=== PATIENT | male | born 1970 | race American Indian/Alaskan Native ===

== ENCOUNTER 2019-08-14 13:05 | Inpatient (IN) | payer MEDICARE ==
--- NOTE | 2019-08-14 13:19 | Event Note ---
ED Screening Note Date of service: 08/14/19 Time: 13:15 ED Screening Note: This is a 49 y.o. M. that presents to the ER with SI thoughts. Patient states he took clonazepam 1 mg x 17 45 minutes [employer]. This initial assessment/diagnostic orders/clinical plan/treatment(s) is/are subject to change based on patients health status, clinical progression and re- assessment by fellow clinical providers in the ED. Further treatment and workup at subsequent clinical providers discretion. Patient/guardian urged not to elope from the ED as their condition may be serious if not clinically assessed and managed. Initial orders include: Labs
[2019-08-14 13:47] LABS: Basophils # (Auto) 0.1 K/mm3 (0.0-0.1); Basophils % (Auto) 1.2 % (0.0-1.8); Eosinophils # (Auto) 0.1 K/mm3 (0.0-0.4); Eosinophils % (Auto) 1.2 % (0.0-4.3); Hematocrit 40.6 % (35.5-45.6); Hemoglobin 13.5 gm/dl (11.8-15.2); Lymphocytes # (Auto) 2.6 K/mm3 (1.2-5.4); Lymphocytes % (Auto) 36.3 % (13.4-35.0); Mean Corpuscular HGB Conc 33 % (32-34); Mean Corpuscular Volume 83 fl (84-94); Monocytes # (Auto) 0.5 K/mm3 (0.0-0.8); Monocytes % (Auto) 7.4 % (0.0-7.3); Platelet Count 326 K/mm3 (140-440); Red Cell Distribution Width 14.2 % (13.2-15.2)
[2019-08-14 14:09] LABS: BUN/Creatinine Ratio 13; Blood Urea Nitrogen 14 mg/dL (9-20); Calcium 9.6 mg/dL (8.4-10.2); Hemolysis Index 8
[2019-08-14] MEDS ORDERED: ATIVAN IM PRN (14:24)
[2019-08-14] MEDS ORDERED: HALDOL IM PRN (14:24)
--- NOTE | 2019-08-14 14:38 | Emergency Department Report ---
ED General Adult HPI - General Chief complaint: Psych Stated complaint: SI Time Seen by Provider: 08/14/19 13:15 Source: patient, RN notes reviewed Mode of arrival: Ambulatory Limitations: No Limitations - History of Present Illness Initial comments: This is a 49-year-old gentleman. This patient is not known to this provider previously. The patient recently moved here from [facility]. he presents to the ER more than one hour after deliberate klonipin ingestion he is depressed about his father being on hospice and took the tabs so " i can meet him [ in [place]]) he denies other co ingestions he denies hallucinations he endorses chronic arthritic pain he denies new or different pain he is asking to speak to a rn social work -: This afternoon - Related Data Home Medications Medication Instructions Recorded Confirmed Last Taken Fluticasone [Flonase] 1 spray NS QDAY 08/14/19 08/14/19 07/15/19 Gabapentin [Neurontin] 800 mg PO QHS 08/14/19 08/14/19 07/15/19 Ipratropium/Albuter (Nf) 2 puff IH QID 08/14/19 08/14/19 07/15/19 [Combivent (Nf)] Naproxen 500 mg PO BID 08/14/19 08/14/19 07/15/19 Quetiapine Fumarate [SEROquel] 400 mg PO QHS 08/14/19 08/14/19 07/15/19 cloNIDine [Catapres] 0.1 mg PO BID 08/14/19 08/14/19 07/15/19 clonazePAM [ Klonopin] 0.5 mg PO BID PRN 08/14/19 08/14/19 07/15/19 Allergies Allergy/AdvReac Type Severity Reaction Status Date / Time chlorpromazine Allergy Rash Verified 08/14/19 13:06 [From Thorazine] pollen extracts Allergy Itching Verified 08/14/19 13:06 ragweed pollen Allergy Itching Verified 08/14/19 13:06 pet dander Allergy Itching Uncoded 08/14/19 13:06 ED Review of Systems ROS: Stated complaint: SI Other details as noted in HPI Constitutional: denies: fever Eyes: denies: eye discharge ENT: denies: hearing loss, congestion Respiratory: denies: wheezing Cardiovascular: denies: syncope Gastrointestinal: denies: abdominal pain Genitourinary: denies: dysuria Musculoskeletal: arthralgia, myalgia Skin: denies: lesions Neurological: denies: weakness Psychiatric: depression, suicidal thoughts ED Past Medical Hx - Past Medical History Hx Hypertension: Yes Hx Psychiatric Treatment: Yes (SCHIZO) Hx COPD: Yes Additional medical history: Hypoglycemia. ADHD PTSD - Social History Smoking Status: Current Every Day Smoker Substance Use Type: Alcohol - Medications Home Medications: Home Medications Medication Instructions Recorded Confirmed Last Taken Type Fluticasone [Flonase] 1 spray NS QDAY 08/14/19 08/14/19 07/15/19 History Gabapentin [Neurontin] 800 mg PO QHS 08/14/19 08/14/19 07/15/19 History Ipratropium/Albuter (Nf) 2 puff IH QID 08/14/19 08/14/19 07/15/19 History [Combivent (Nf)] Naproxen 500 mg PO BID 08/14/19 08/14/19 07/15/19 History Quetiapine Fumarate [SEROquel] 400 mg PO QHS 08/14/19 08/14/19 07/15/19 History cloNIDine [Catapres] 0.1 mg PO BID 08/14/19 08/14/19 07/15/19 History clonazePAM [ Klonopin] 0.5 mg PO BID PRN 08/14/19 08/14/19 07/15/19 History ED Physical Exam - General Limitations: No Limitations General appearance: alert, in no apparent distress - Head Head exam: Present: atraumatic, normocephalic - Eye Eye exam: Present: normal appearance, EOMI, other (visual acuity intact to finger counting and color perception at a close distance). Absent: nystagmus - ENT ENT exam: Present: normal exam, normal orophraynx, mucous membranes moist, normal external ear exam - Neck Neck exam: Present: normal inspection, full ROM. Absent: tenderness, meningismus - Respiratory Respiratory exam: Present: normal lung sounds bilaterally. Absent: respiratory distress - Cardiovascular Cardiovascular Exam: Present: regular rate, normal rhythm, normal heart sounds. Absent: bradycardia, tachycardia, irregular rhythm, systolic murmur, diastolic murmur, rubs, gallop - GI/Abdominal GI/Abdominal exam: Present: soft. Absent: distended, tenderness, guarding, rebound, rigid, pulsatile mass - Rectal Rectal exam: Present: deferred - Extremities Exam Extremities exam: Present: normal inspection, full ROM, other (2+ pulses noted in the bilateral upper, lower extremities. There is no long bone tenderness. Musculoskeletal compartments are soft. The pelvis is stable.). Absent: pedal edema, calf tenderness - Back Exam Back exam: Present: normal inspection, full ROM. Absent: CVA tenderness (L), paraspinal tenderness, vertebral tenderness - Neurological Exam Neurological exam: Present: alert, oriented X3, normal gait, other (there is no facial droop. The tongue is midline. Extraocular movements are intact bilaterally. Patient speaking in full complete sentences. Shoulder shrug is intact bilaterally. Hearing is grossly intact bilaterally. Visual acuity intact to finger counting and color perception at a close distance. 5/5 strength 4 extremities. Sensation intact to light touch in 4 extremities.). Absent: motor sensory deficit - Psychiatric Psychiatric exam: Present: flat affect, suicidal ideation - Skin Skin exam: Present: warm, dry, intact, normal color. Absent: rash ED Course Vital Signs 08/14/19 08/14/19 08/14/19 13:09 14:30 14:40 Temperature 98.6 F Pulse Rate 102 H 102 H Respiratory 18 16 Rate Blood Pressure 132/91 Blood Pressure 118/73 [Left] O2 Sat by Pulse 98 97 95 Oximetry 08/14/19 08/14/19 08/14/19 14:46 15:00 15:36 Temperature Pulse Rate 89 Respiratory 15 Rate Blood Pressure 109/70 109/69 113/60 Blood Pressure 113/60 [Left] O2 Sat by Pulse 99 95 Oximetry 08/14/19 08/14/19 08/14/19 15:46 15:47 16:00 Temperature Pulse Rate 90 85 82 Respiratory 18 16 17 Rate Blood Pressure 113/60 103/67 Blood Pressure 103/67 [Left] O2 Sat by Pulse 98 95 97 Oximetry 08/14/19 08/14/19 16:16 16:30 Temperature Pulse Rate 84 64 Respiratory 15 16 Rate Blood Pressure 113/60 93/61 Blood Pressure [Left] O2 Sat by Pulse 99 Oximetry - Reevaluation(s) Reevaluation #1: 08/14/19 15:41 Differential diagnosis, including not limited to: Mood disorder, suicidality, overdose, medical clearance for psychiatric placement Assessment and plan: 49-year-old gentleman with a primary complaint of d eliberate overdose, presenting more than one hour after ingestion, therefore, not a charcoal candidate at this time. He is afebrile, with reassuring vital signs, moving 4 extremities and walking with a steady gait, and protecting his airway. Serum toxicology studies are not indicative of need for emergent antidote at this time. Patient placed on 1013, health administrator ordered, as needed sedating medications needed if patient becomes agitated. There is no prior EKG available for comparison. He endorsed that his "allergy" to haloperidol was a rash in his genitals. He did not endorse any airway symptoms with exposure to haloperidol. Therefore, this is very unlikely to be to anaphylactic or anaphylactoid reaction. Discussion with the Poison Control Center currently,awaiting recommendations from Yudith Reevaluation #2: 08/14/19 15:43 poison control recommends ekg every few to assess for changes in intervals, and if intervals prolong, would recommend call back also recommend 6-8 hours observation Reevaluation #3: 08/14/19 16:55 Change in plans. Patient informed nursing staff that he took clonidine, instead of Clonopin. He specifically denied coingestions to me, and only told me that he took Klonopin. However, his blood pressure is now decreasing to the 90s and high 80s. Went back to patient, and asked him again, and now he states he took both. We will contact the Poison Control Center with updated information. Repeat EKG is basically unchanged. Given low blood pressure 80s and 90s, inconsistent history, we will recommend admission to the hospital at this time. If patient requires vasopressor support, we will place intraosseous line. Reevaluation #4: 08/14/19 17:00 Dr Mcclure accepts ED Medical Decision Making - Lab Data Result diagrams: 08/14/19 07:37 08/14/19 13:31 Vital Signs 08/14/19 08/14/19 13:09 14:40 Temperature 98.6 F Pulse Rate 102 H 102 H Respiratory 18 16 Rate Blood Pressure 132/91 Blood Pressure 118/73 [Left] O2 Sat by Pulse 98 95 Oximetry Lab Results 08/14/19 08/14/19 08/14/19 Range/Units 07:37 13:31 13:31 WBC 7.2 (4.5-11.0) K/mm3 RBC 4.90 (3.65-5.03) M/mm3 Hgb 13.5 (11.8-15.2) gm/dl Hct 40.6 (35.5-45.6) % MCV 83 L (84-94) fl MCH 28 (28-32) pg MCHC 33 (32-34) % RDW 14.2 (13.2-15.2) % Plt Count 326 (140-440) K/mm3 Lymph % (Auto) 36.3 H (13.4-35.0) % [place] % (Auto) 7.4 H (0.0-7.3) % Eos % (Auto) 1.2 (0.0-4.3) % Baso % (Auto) 1.2 (0.0-1.8) % Lymph # 2.6 (1.2-5.4) K/mm3 [place] # 0.5 (0.0-0.8) K/mm3 Eos # 0.1 (0.0-0.4) K/mm3 Baso # 0.1 (0.0-0.1) K/mm3 Seg Neutrophils % 53.9 (40.0-70.0) % Seg Neutrophils # 3.9 (1.8-7.7) K/mm3 Sodium (137-145) mmol/L Potassium (3.6-5.0) mmol/L Chloride (98-107) mmol/L Carbon Dioxide (22-30) mmol/L Anion Gap mmol/L BUN (9-20) mg/dL Creatinine (0.8-1.5) mg/dL Estimated GFR ml/min BUN/Creatinine Ratio % Glucose (75-100) mg/dL Calcium (8.4-10.2) mg/dL Magnesium (1.7-2.3) mg/dL Total Creatine Kinase (55-170) units/L Urine Color (Yellow) Urine Turbidity (Clear) Urine pH (5.0-7.0) Ur Specific [place] (1.003-1.030) Urine Protein (Negative) mg/dL Urine Glucose (UA) (Negative) mg/dL Urine Ketones (Negative) mg/dL Urine Blood (Negative) Urine Nitrite (Negative) Urine Bilirubin (Negative) Urine Urobilinogen (<2.0) mg/dL Ur Leukocyte Esterase (Negative) Urine WBC (Auto) (0.0-6.0) /HPF Urine RBC (Auto) (0.0-6.0) /HPF Urine Mucus /HPF Salicylates < 0.3 L (2.8-20.0) mg/dL Acetaminophen < 5.0 L (10.0-30.0) ug/mL Plasma/Serum Alcohol (0-0.07) % 08/14/19 08/14/19 08/14/19 Range/Units 13:31 13:31 14:24 WBC (4.5-11.0) K/mm3 RBC (3.65-5.03) M/mm3 Hgb (11.8-15.2) gm/dl Hct (35.5-45.6) % MCV (84-94) fl MCH (28-32) pg MCHC (32-34) % RDW (13.2-15.2) % Plt Count (140-440) K/mm3 Lymph % (Auto) (13.4-35.0) % [place] % (Auto) (0.0-7.3) % Eos % (Auto) (0.0-4.3) % Baso % (Auto) (0.0-1.8) % Lymph # (1.2-5.4) K/mm3 [place] # (0.0-0.8) K/mm3 Eos # (0.0-0.4) K/mm3 Baso # (0.0-0.1) K/mm3 Seg Neutrophils % (40.0-70.0) % Seg Neutrophils # (1.8-7.7) K/mm3 Sodium 140 (137-145) mmol/L Potassium 4.0 (3.6-5.0) mmol/L Chloride 103.0 (98-107) mmol/L Carbon Dioxide 22 (22-30) mmol/L Anion Gap 19 mmol/L BUN 14 (9-20) mg/dL Creatinine 1.1 (0.8-1.5) mg/dL Estimated GFR > 60 ml/min BUN/Creatinine Ratio 13 % Glucose 101 H (75-100) mg/dL Calcium 9.6 (8.4-10.2) mg/dL Magnesium 1.70 (1.7-2.3) mg/dL Total Creatine Kinase 94 (55-170) units/L Urine Color (Yellow) Urine Turbidity (Clear) Urine pH (5.0-7.0) Ur Specific [place] (1.003-1.030) Urine Protein (Negative) mg/dL Urine Glucose (UA) (Negative) mg/dL Urine Ketones (Negative) mg/dL Urine Blood (Negative) Urine Nitrite (Negative) Urine Bilirubin (Negative) Urine Urobilinogen (<2.0) mg/dL Ur Leukocyte Esterase (Negative) Urine WBC (Auto) (0.0-6.0) /HPF Urine RBC (Auto) (0.0-6.0) /HPF Urine Mucus /HPF Salicylates (2.8-20.0) mg/dL Acetaminophen (10.0-30.0) ug/mL Plasma/Serum Alcohol < 0.01 (0-0.07) % 08/14/19 Range/Units 14:57 WBC (4.5-11.0) K/mm3 RBC (3.65-5.03) M/mm3 Hgb (11.8-15.2) gm/dl Hct (35.5-45.6) % MCV (84-94) fl MCH (28-32) pg MCHC (32-34) % RDW (13.2-15.2) % Plt Count (140-440) K/mm3 Lymph % (Auto) (13.4-35.0) % [place] % (Auto) (0.0-7.3) % Eos % (Auto) (0.0-4.3) % Baso % (Auto) (0.0-1.8) % Lymph # (1.2-5.4) K/mm3 [place] # (0.0-0.8) K/mm3 Eos # (0.0-0.4) K/mm3 Baso # (0.0-0.1) K/mm3 Seg Neutrophils % (40.0-70.0) % Seg Neutrophils # (1.8-7.7) K/mm3 Sodium (137-145) mmol/L Potassium (3.6-5.0) mmol/L Chloride (98-107) mmol/L Carbon Dioxide (22-30) mmol/L Anion Gap mmol/L BUN (9-20) mg/dL Creatinine (0.8-1.5) mg/dL Estimated GFR ml/min BUN/Creatinine Ratio % Glucose (75-100) mg/dL Calcium (8.4-10.2) mg/dL Magnesium (1.7-2.3) mg/dL Total Creatine Kinase (55-170) units/L Urine Color Yellow (Yellow) Urine Turbidity Clear (Clear) Urine pH 6.0 (5.0-7.0) Ur Specific [place] 1.015 (1.003-1.030) Urine Protein <15 mg/dl (Negative) mg/dL Urine Glucose (UA) Neg (Negative) mg/dL Urine Ketones Neg (Negative) mg/dL Urine Blood Neg (Negative) Urine Nitrite Neg (Negative) Urine Bilirubin Neg (Negative) Urine Urobilinogen < 2.0 (<2.0) mg/dL Ur Leukocyte Esterase Neg (Negative) Urine WBC (Auto) 1.0 (0.0-6.0) /HPF Urine RBC (Auto) 3.0 (0.0-6.0) /HPF Urine Mucus Few /HPF Salicylates (2.8-20.0) mg/dL Acetaminophen (10.0-30.0) ug/mL Plasma/Serum Alcohol (0-0.07) % - EKG Data -: EKG Interpreted by Me EKG shows normal: sinus rhythm Rate: normal - EKG Data When compared to previous EKG there are: previous EKG unavailable 08/14/19 15:40 There is no prior EKG available for comparison. This is a sinus rhythm, 87 beats for minute, left axis deviation, left anterior fascicular block, right bundle branch block, QTC prolonged, 465 ms, the EKG is abnormal, the EKG is not consistent with ST elevation myocardial infarction. Critical care attestation.: If time is entered above; I have spent that time in minutes in the direct care of this critically ill patient, excluding procedure time. ED Disposition Clinical Impression: Medical clearance for psychiatric admission Overdose Qualifiers: Encounter type: initial encounter Injury intent: intentional self-harm Qualified Code(s): T50.902A - Poisoning by unspecified drugs, medicaments and bi ological substances, intentional self-harm, initial encounter Disposition: 09 OP ADMIT IP TO THIS HOSP Is pt being admited?: Yes Condition: Good
[2019-08-14 15:27] LABS: Bilirubin,Urine NEG (Negative); Blood,Urine NEG (Negative); Color,Urine Yellow (Yellow); Mucus,Urine FEW /HPF; Protein,Urine <15 mg/dL mg/dL (Negative); Urobilinogen,Urine < 2.0 mg/dL (<2.0)
[2019-08-14 15:35] LABS: Amphetamine Screen,Urine PRESUMPTIVE NEGATIVE; Benzodiazepines Screen,Urine PRESUMPTIVE NEGATIVE; Cannabinoid Screen,Urine PRESUMPTIVE NEGATIVE; Cocaine Screen,Urine PRESUMPTIVE NEGATIVE; Methadone Screen,Urine PRESUMPTIVE NEGATIVE; Opiate Screen,Urine PRESUMPTIVE NEGATIVE
[2019-08-14] MEDS ORDERED: NACL 0.9% 1000 ML 1,000 ML IV ONE ×3 (16:18→16:20)
[2019-08-14] MEDS ORDERED: NACL 0.9% 1000 ML 2,000 ML IV ONE (16:59)
--- NOTE | 2019-08-14 20:51 | History and Physical Report ---
History of Present Illness Date of examination: 08/14/19 Date of admission: 08/14/19 17:01 Chief complaint: Klonopin and clonidine overdose History of present illness: 49-year-old male with past medical history significant for schizophrenia, ADHD, COPD and hypertension apparently took some Klonopins and clonidine tablets because he was severely depressed and wanted to go to [facility] to see his dad who recently . Patient has extensive psychiatric history. Denies hallucinations or delusions. Has chronic joint pains. No fever or chills. Past Medical History Hypertension: Yes Psychiatric Treatment: Yes (SCHIZO) COPD: Yes Additional medical history: Hypoglycemia. ADHD PTSD Social History Smoking Status: Current Every Day Smoker Substance Use Type: Alcohol Surgical history unavailable Family history HTN Medications Home Medications: Home Medications Medication Instructions Recorded Confirmed Last Taken Type Fluticasone [Flonase] 1 spray NS QDAY 08/14/19 08/14/19 07/15/19 History Gabapentin [Neurontin] 800 mg PO QHS 08/14/19 08/14/19 07/15/19 History Ipratropium/Albuter (Nf) 2 puff IH QID 08/14/19 08/14/19 07/15/19 History [Combivent (Nf)] Naproxen 500 mg PO BID 08/14/19 08/14/19 07/15/19 History Quetiapine Fumarate [SEROquel] 400 mg PO QHS 08/14/19 08/14/19 07/15/19 History cloNIDine [Catapres] 0.1 mg PO BID 08/14/19 08/14/19 07/15/19 History clonazePAM [ Klonopin] 0.5 mg PO BID PRN 08/14/19 08/14/19 07/15/19 History Review of Systems ROS: Stated complaint: SI Other details as noted in HPI Constitutional: denies: fever Eyes: denies: eye discharge ENT: denies: hearing loss, congestion Respiratory: denies: wheezing Cardiovascular: denies: syncope Gastrointestinal: denies: abdominal pain Genitourinary: denies: dysuria Musculoskeletal: arthralgia, myalgia Skin: denies: lesions Neurological: denies: weakness Psychiatric: depression, suicidal thoughts Medications and Allergies Allergies Allergy/AdvReac Type Severity Reaction Status Date / Time chlorpromazine Allergy Rash Verified 08/14/19 13:06 [From Thorazine] pollen extracts Allergy Itching Verified 08/14/19 13:06 ragweed pollen Allergy Itching Verified 08/14/19 13:06 pet dander Allergy Itching Uncoded 08/14/19 13:06 Home Medications Medication Instructions Recorded Confirmed Last Taken Type Fluticasone [Flonase] 1 spray NS QDAY 08/14/19 08/14/19 07/15/19 History Gabapentin [Neurontin] 800 mg PO QHS 08/14/19 08/14/19 07/15/19 History Ipratropium/Albuter (Nf) 2 puff IH QID 08/14/19 08/14/19 07/15/19 History [Combivent (Nf)] Naproxen 500 mg PO BID 08/14/19 08/14/19 07/15/19 History Quetiapine Fumarate [SEROquel] 400 mg PO QHS 08/14/19 08/14/19 07/15/19 History cloNIDine [Catapres] 0.1 mg PO BID 08/14/19 08/14/19 07/15/19 History clonazePAM [ Klonopin] 0.5 mg PO BID PRN 08/14/19 08/14/19 07/15/19 History Active Meds: Active Medications Haloperidol Lactate (Haldol) 5 mg IM Q6HR PRN PRN Reason: Agitation Last Admin: 08/14/19 15:20 Dose: 5 mg Documented by: Lorazepam (Ativan) 2 mg IM Q4HR PRN PRN Reason: Agitation Last Admin: 08/14/19 15:20 Dose: 2 mg Documented by: Exam - Physical Exam Narrative exam: Patient is easily arousable, alert and oriented - Constitutional Vitals: Temp Pulse Resp BP Pulse Ox 98.6 F 52 L 14 124/76 97 08/14/19 13:09 08/14/19 19:11 08/14/19 20:00 08/14/19 20:00 08/14/19 20:00 General appearance: Present: no acute distress, well-nourished - EENT Eyes: Present: PERRL ENT: hearing intact, clear oral mucosa - Neck Neck: Present: supple, normal ROM - Respiratory Respiratory effort: normal Respiratory: bilateral: CTA - Cardiovascular Heart rate: 86 Rhythm: regular Heart Sounds: Present: S1 & S2. Absent: rub, click - Extremities Extremities: no ischemia, pulses intact, pulses symmetrical, No edema Peripheral Pulses: within normal limits - Abdominal General gastrointestinal: Present: soft, non-tender, non-distended, normal bowel sounds Male genitourinary: Present: normal - Rectal Rectal Exam: deferred - Integumentary Integumentary: Present: clear, warm, dry - Musculoskeletal Musculoskeletal: gait normal, strength equal bilaterally - Psychiatric Psychiatric: appropriate mood/affect, intact judgment & insight - Neurologic Neurologic: CNII-XII intact, moves all extremities - Allied Health Allied health notes reviewed: nursing, case management Results - Labs CBC & Chem 7: 08/14/19 07:37 08/14/19 13:31 Labs: Laboratory Last Values WBC 7.2 K/mm3 (4.5-11.0) 08/14/19 07:37 RBC 4.90 M/mm3 (3.65-5.03) 08/14/19 07:37 Hgb 13.5 gm/dl (11.8-15.2) 08/14/19 07:37 Hct 40.6 % (35.5-45.6) 08/14/19 07:37 MCV 83 fl (84-94) L 08/14/19 07:37 MCH 28 pg (28-32) 08/14/19 07:37 MCHC 33 % (32-34) 08/14/19 07:37 RDW 14.2 % (13.2-15.2) 08/14/19 07:37 Plt Count 326 K/mm3 (140-440) 08/14/19 07:37 Lymph % (Auto) 36.3 % (13.4-35.0) H 08/14/19 07:37 [place] % (Auto) 7.4 % (0.0-7.3) H 08/14/19 07:37 Eos % (Auto) 1.2 % (0.0-4.3) 08/14/19 07:37 Baso % (Auto) 1.2 % (0.0-1.8) 08/14/19 07:37 Lymph # 2.6 K/mm3 (1.2-5.4) 08/14/19 07:37 [place] # 0.5 K/mm3 (0.0-0.8) 08/14/19 07:37 Eos # 0.1 K/mm3 (0.0-0.4) 08/14/19 07:37 Baso # 0.1 K/mm3 (0.0-0.1) 08/14/19 07:37 Seg Neutrophils % 53.9 % (40.0-70.0) 08/14/19 07:37 Seg Neutrophils # 3.9 K/mm3 (1.8-7.7) 08/14/19 07:37 Sodium 140 mmol/L (137-145) 08/14/19 13:31 Potassium 4.0 mmol/L (3.6-5.0) 08/14/19 13:31 Chloride 103.0 mmol/L (98-107) 08/14/19 13:31 Carbon Dioxide 22 mmol/L (22-30) 08/14/19 13:31 Anion Gap 19 mmol/L 08/14/19 13:31 BUN 14 mg/dL (9-20) 08/14/19 13:31 Creatinine 1.1 mg/dL (0.8-1.5) 08/14/19 13:31 Estimated GFR > 60 ml/min 08/14/19 13:31 BUN/Creatinine Ratio 13 % 08/14/19 13:31 Glucose 101 mg/dL (75-100) H 08/14/19 13:31 Calcium 9.6 mg/dL (8.4-10.2) 08/14/19 13:31 Magnesium 1.70 mg/dL (1.7-2.3) 08/14/19 14:24 Total Creatine Kinase 94 units/L (55-170) 08/14/19 14:24 Urine Color Yellow (Yellow) 08/14/19 14:57 Urine Turbidity Clear (Clear) 08/14/19 14:57 Urine pH 6.0 (5.0-7.0) 08/14/19 14:57 Ur Specific [place] 1.015 (1.003-1.030) 08/14/19 14:57 Urine Protein <15 mg/dl mg/dL (Negative) 08/14/19 14:57 Urine Glucose (UA) Neg mg/dL (Negative) 08/14/19 14:57 Urine Ketones Neg mg/dL (Negative) 08/14/19 14:57 Urine Blood Neg (Negative) 08/14/19 14:57 Urine Nitrite Neg (Negative) 08/14/19 14:57 Urine Bilirubin Neg (Negative) 08/14/19 14:57 Urine Urobilinogen < 2.0 mg/dL (<2.0) 08/14/19 14:57 Ur Leukocyte Esterase Neg (Negative) 08/14/19 14:57 Urine WBC (Auto) 1.0 /HPF (0.0-6.0) 08/14/19 14:57 Urine RBC (Auto) 3.0 /HPF (0.0-6.0) 08/14/19 14:57 Urine Mucus Few /HPF 08/14/19 14:57 Salicylates < 0.3 mg/dL (2.8-20.0) L 08/14/19 13:31 Urine Opiates Screen Presumptive negative 08/14/19 14:57 Urine Methadone Screen Presumptive negative 08/14/19 14:57 Acetaminophen < 5.0 ug/mL (10.0-30.0) L 08/14/19 13:31 Ur Barbiturates Screen Presumptive negative 08/14/19 14:57 Ur Phencyclidine Scrn Presumptive negative 08/14/19 14:57 Ur Amphetamines Screen Presumptive negative 08/14/19 14:57 U Benzodiazepines Scrn Presumptive negative 08/14/19 14:57 Urine Cocaine Screen Presumptive negative 08/14/19 14:57 U Marijuana (THC) Screen Presumptive negative 08/14/19 14:57 Drugs of Abuse Note Disclamer 08/14/19 14:57 Plasma/Serum Alcohol < 0.01 % (0-0.07) 08/14/19 13:31 Assessment and Plan Advance Directives: Yes (full code) VTE prophylaxis?: Chemical Plan of care discussed with patient/family: Yes - Patient Problems (1) Overdose Current Visit: Yes Status: Acute Qualifiers: Encounter type: initial encounter Injury intent: intentional self-harm Qualified Code(s): T50.902A - Poisoning by unspecified drugs, medicaments and biological substances, intentional self-harm, initial encounter Plan to address problem: Patient took klonopin and Clonidine tablets. Unable to tell the number of pills.Patient is easily arousible.IV Fluids for now.Maintain reasonable Blood pressure around 100/60. Pressors if necessary. consult for suicidal attempt. (2) Hypotension Current Visit: Yes Status: Acute Qualifiers: Hypotension type: hypotension due to drug Qualified Code(s): I95.2 - Hypotension due to drugs Plan to address problem: IV fluids for now Pressors if necessary (3) Suicide attempt Current Visit: Yes Status: Acute Plan to address problem: Mental health consult (4) Nicotine dependence Current Visit: Yes Status: Chronic Qualifiers: Nicotine product type: cigarettes Plan to address problem: NicoDerm patch initiated Patient counseled (5) DVT prophylaxis Current Visit: Yes Status: Acute Plan to address problem: Lovenox 40 mg subcutaneous daily and GI prophylaxis
[2019-08-14] MEDS ORDERED: NON-FORMULARY (Ipratropium/Albuter (Nf) 2 PUFF) IH SCH (22:00)
[2019-08-14] MEDS: FLONASE NS SCH (22:14)
[2019-08-14] MEDS: HABITROL TD SCH (22:15)
[2019-08-14] MEDS: ENOXAPARIN SUB-Q SCH (22:15)
[2019-08-15] MEDS: DUONEB *Not for PRN Use IH SCH ×4 (04:06→20:22)
[2019-08-15] MEDS: NAPROXEN PO SCH ×3 (05:35→23:09)
[2019-08-15] MEDS: HABITROL TD SCH (09:09)
[2019-08-15] MEDS: FLONASE NS SCH (09:09)
--- NOTE | 2019-08-15 11:31 | Progress Note ---
Assessment and Plan Assessment and plan: Drug Overdose Patient took klonopin piolls. he denies taking Clonidine tablets. Unable to tell the number of pills. IV Fluids for now. consult for suicidal attempt. Hypotension IV fluids for now Pressors if necessary Suicide attempt Mental health consult Nicotine dependence NicoDerm patch initiated Patient counseled Full code History Interval history: Patient admitted with suicidal attempt by drug overdose Hospitalist Physical - Physical exam Narrative exam: Gen: Not in acute distress, lying in bed,obese HEENT: Normocephalic, atraumatic Neck: supple, no JVD Heart: S1 and S2 reg, no murmurs, rubs or gallop Lungs: Clear to auscultation, no rhonchi, no wheeze Abd: soft, non tender, non distended, normal BS, Ext: No edema, no clubbing, no cyanosis Neuro: Awake, alert, oriented X 3, no focal neurological signs Psych: suicidal - Constitutional Vitals: Temp Pulse Resp BP Pulse Ox 97.8 F 70 18 130/83 99 08/15/19 07:45 08/15/19 08:19 08/15/19 11:00 08/15/19 07:45 08/15/19 07:45 General appearance: Present: no acute distress, well-nourished Results - Labs CBC & Chem 7: 08/14/19 07:37 08/14/19 13:31 Labs: Laboratory Last Values WBC 7.2 K/mm3 (4.5-11.0) 08/14/19 07:37 RBC 4.90 M/mm3 (3.65-5.03) 08/14/19 07:37 Hgb 13.5 gm/dl (11.8-15.2) 08/14/19 07:37 Hct 40.6 % (35.5-45.6) 08/14/19 07:37 MCV 83 fl (84-94) L 08/14/19 07:37 MCH 28 pg (28-32) 08/14/19 07:37 MCHC 33 % (32-34) 08/14/19 07:37 RDW 14.2 % (13.2-15.2) 08/14/19 07:37 Plt Count 326 K/mm3 (140-440) 08/14/19 07:37 Lymph % (Auto) 36.3 % (13.4-35.0) H 08/14/19 07:37 Morrill % (Auto) 7.4 % (0.0-7.3) H 08/14/19 07:37 Eos % (Auto) 1.2 % (0.0-4.3) 08/14/19 07:37 Baso % (Auto) 1.2 % (0.0-1.8) 08/14/19 07:37 Lymph # 2.6 K/mm3 (1.2-5.4) 08/14/19 07:37 Morrill # 0.5 K/mm3 (0.0-0.8) 08/14/19 07:37 Eos # 0.1 K/mm3 (0.0-0.4) 08/14/19 07:37 Baso # 0.1 K/mm3 (0.0-0.1) 08/14/19 07:37 Seg Neutrophils % 53.9 % (40.0-70.0) 08/14/19 07:37 Seg Neutrophils # 3.9 K/mm3 (1.8-7.7) 08/14/19 07:37 Sodium 140 mmol/L (137-145) 08/14/19 13:31 Potassium 4.0 mmol/L (3.6-5.0) 08/14/19 13:31 Chloride 103.0 mmol/L (98-107) 08/14/19 13:31 Carbon Dioxide 22 mmol/L (22-30) 08/14/19 13:31 Anion Gap 19 mmol/L 08/14/19 13:31 BUN 14 mg/dL (9-20) 08/14/19 13:31 Creatinine 1.1 mg/dL (0.8-1.5) 08/14/19 13:31 Estimated GFR > 60 ml/min 08/14/19 13:31 BUN/Creatinine Ratio 13 % 08/14/19 13:31 Glucose 101 mg/dL (75-100) H 08/14/19 13:31 Calcium 9.6 mg/dL (8.4-10.2) 08/14/19 13:31 Magnesium 1.70 mg/dL (1.7-2.3) 08/14/19 14:24 Total Creatine Kinase 94 units/L (55-170) 08/14/19 14:24 Urine Color Yellow (Yellow) 08/14/19 14:57 Urine Turbidity Clear (Clear) 08/14/19 14:57 Urine pH 6.0 (5.0-7.0) 08/14/19 14:57 Ur Specific [place] 1.015 (1.003-1.030) 08/14/19 14:57 Urine Protein <15 mg/dl mg/dL (Negative) 08/14/19 14:57 Urine Glucose (UA) Neg mg/dL (Negative) 08/14/19 14:57 Urine Ketones Neg mg/dL (Negative) 08/14/19 14:57 Urine Blood Neg (Negative) 08/14/19 14:57 Urine Nitrite Neg (Negative) 08/14/19 14:57 Urine Bilirubin Neg (Negative) 08/14/19 14:57 Urine Urobilinogen < 2.0 mg/dL (<2.0) 08/14/19 14:57 Ur Leukocyte Esterase Neg (Negative) 08/14/19 14:57 Urine WBC (Auto) 1.0 /HPF (0.0-6.0) 08/14/19 14:57 Urine RBC (Auto) 3.0 /HPF (0.0-6.0) 08/14/19 14:57 Urine Mucus Few /HPF 08/14/19 14:57 Salicylates < 0.3 mg/dL (2.8-20.0) L 08/14/19 13:31 Urine Opiates Screen Presumptive negative 08/14/19 14:57 Urine Methadone Screen Presumptive negative 08/14/19 14:57 Acetaminophen < 5.0 ug/mL (10.0-30.0) L 08/14/19 13:31 Ur Barbiturates Screen Presumptive negative 08/14/19 14:57 Ur Phencyclidine Scrn Presumptive negative 08/14/19 14:57 Ur Amphetamines Screen Presumptive negative 08/14/19 14:57 U Benzodiazepines Scrn Presumptive negative 08/14/19 14:57 Urine Cocaine Screen Presumptive negative 08/14/19 14:57 U Marijuana (THC) Screen Presumptive negative 08/14/19 14:57 Drugs of Abuse Note Disclamer 08/14/19 14:57 Plasma/Serum Alcohol < 0.01 % (0-0.07) 08/14/19 13:31 Active Medications - Current Medications Current Medications: Generic Name Dose Route Start Last Admin Trade Name Freq PRN Reason Stop Dose Admin Albuterol/Ipratropium 1 ampul 08/15/19 02:00 08/15/19 08:00 Duoneb *Not For Prn Use* IH 1 ampul Q6HRT KEYLA Administration Enoxaparin Sodium 40 mg 08/14/19 22:00 08/14/19 22:15 Lovenox SUB-Q 40 mg QDAY@2200 KEYLA Administration Fluticasone Propionate 50 mcg 08/14/19 22:00 08/15/19 09:09 Flonase NS 50 mcg QDAY KEYLA Administration Naproxen 500 mg 08/14/19 22:00 08/15/19 09:08 Naprosyn PO 500 mg BID KEYLA Administration Nicotine 14 mg 08/14/19 22:00 08/15/19 09:09 Habitrol TD 14 mg QDAY KEYLA Administration Quetiapine Fumarate 400 mg 08/14/19 22:00 08/14/19 22:15 Seroquel PO 400 mg QHS KEYLA Administration
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
[2019-08-15] MEDS: WELLBUTRIN XL PO SCH (15:41)
[2019-08-15] MEDS ORDERED: HALDOL IM PRN (16:45)
[2019-08-15] MEDS ORDERED: ATIVAN IM PRN ×2 (16:46→17:52)
[2019-08-15] MEDS ORDERED: GEODON IM PRN (17:33)
[2019-08-15] MEDS ORDERED: ATIVAN IV PRN (17:52)
--- NOTE | 2019-08-15 18:21 | Event Note ---
Date: 08/15/19 patient very agitated, aggresive. Given Ativan, haldol with no improvement. started on Geodon. MANFRED protocol. security had to go to his room.
[2019-08-15] MEDS: ENOXAPARIN SUB-Q SCH (23:10)
[2019-08-16] MEDS: DUONEB *Not for PRN Use IH SCH (03:10)
[2019-08-16] MEDS ORDERED: PROVENTIL IH PRN (03:12)
[2019-08-16 04:32] VITALS: BP 106/71
--- NOTE | 2019-08-16 08:51 | Event Note ---
Date: 08/16/19 Patient medically stable to transfer to [facility] facility.
[2019-08-16] MEDS: ATIVAN IM PRN ×2 (09:15→14:32)
[2019-08-16] MEDS: FLONASE NS SCH (09:15)
[2019-08-16] MEDS: NAPROXEN PO SCH (09:15)
[2019-08-16] MEDS: HABITROL TD SCH (09:16)
[2019-08-16] MEDS: WELLBUTRIN XL PO SCH (09:16)
[2019-08-16] MEDS ORDERED: LaMICtal PO SCH (10:00)
--- NOTE | 2019-08-16 11:56 | Progress Note ---
Subjective - Reason for Consult Consult date: 08/16/19 Reason for consult: Psychiatry Follow-up - Chief Complaint Chief complaint: "I never overdosed" 49 y.o. AA male who presented to the ER for possible overdose/ Today the patient was calm and cooperative during the assessment. He denies that he took several Klonopin pills when asked. He stated that he's homeless and need chcf. He stated that he came to the ER and purposely stated that he overdosed to get social services analyst assistance. He stated, "I was wrong for this." He stated that he would like to be discharged with a referral for mental health services. He denies SI/HI's and AVHs'. He denies any side effects from his medications. Mental Status Exam - Vital signs Last Vital Signs Temp 32.1 F L 08/16/19 04:27 Pulse 90 08/16/19 08:00 Resp 18 08/16/19 04:27 BP 106/71 08/16/19 04:27 Pulse Ox 97 08/16/19 04:27 - Exam Narrative exam: MSE: Appearance: calm, cooperative Behavior: regular eye contact Speech: regular rate and tone Mood: "okay" Affect: congruent to mood Thought Process: circumstantial Thought Content: denies SI/HI's and AVH's Motor Activity: sitting in a chair Cognition: A/O x 3 Insight: fair Judgment: fair Assessment and Plan Impression: Hx of Mood DO per the patient. Today the patient was calm and cooperative during the assessment. The patient is no threat to self. UDS was negative for all substances. Recommendation/Plan: Rescind 1013. Continue home medications Wellbutrin 150 mg PO daily for depression, Seroquel 400 mg PO HS for mood, and Lacital 25 mg PO daily for mood. Discussed possible metabolic side effects of Seroquel with the patient, he verbalized understanding. Discussed possible SJS side effects with the patient reference Lacital, he verbalized understanding. Discussed possible suicidality/medication induced herminia with the patient reference Wellbutrin, he verbalized understanding Dispo: The patient is pending PHP placement (voluntary). If he cannot attend the [facility], he can follow up with the [facility] for outpatient psy services. Staffed with Dr Rehan Villafuerte.
--- NOTE | 2019-08-16 14:02 | Discharge Summary ---
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 Notified:: awaiting call back 08/14/19 14:36 Consult to Case Management [CONS] Urgent Services Needed at Discharge: Rag Sorter Notified:: awaiting call back Hospitalization Condition: Fair Disposition: DC-01 TO HOME OR SELFCARE Core Measure Documentation - Palliative Care Palliative Care/ Comfort Measures: Not Applicable - Core Measures Any of the following diagnoses?: none Exam - Constitutional Vitals: Temp Pulse Resp BP Pulse Ox 32.1 F L 90 18 106/71 97 08/16/19 04:27 08/16/19 08:00 08/16/19 04:27 08/16/19 04:27 08/16/19 04:27 Plan Activity: advance as tolerated Diet: low fat, low cholesterol, low salt Plan of Treatment: 1.Follow up with PCP or [facility] in 1 week 2.Follow up with [facility] in 1 week Follow up with: OUT OF ,STATE [Other] - 7 Days
== END 2019-08-16 18:39 | DRG 918 ==
LOC: ED 13:05 → 4A 17:01 → OBSVTOIN 08-15 09:33
PROVIDERS: ADMIT Internal Medicine; ATTEND Internal Medicine
DX: T46.5X2A Poisoning by other antihypertensive drugs, intentional self-harm, initial encounter (principal); E71.312 Short chain acyl CoA dehydrogenase deficiency; T42.4X2A Poisoning by benzodiazepines, intentional self-harm, initial encounter; F31.9 Bipolar disorder, unspecified; J44.9 Chronic obstructive pulmonary disease, unspecified; F20.9 Schizophrenia, unspecified; F90.9 Attention-deficit hyperactivity disorder, unspecified type; I10 Essential (primary) hypertension; I95.2 Hypotension due to drugs; F17.210 Nicotine dependence, cigarettes, uncomplicated; Z72.89 Other problems related to lifestyle; Z82.49 Family history of ischemic heart disease and other diseases of the circulatory system; Z79.899 Other long term (current) drug therapy; Y92.89 Other specified places as the place of occurrence of the external cause; Z71.6 Tobacco abuse counseling
CPT/HCPCS: 36415; 80048; 80307; 80320; 81001; 82550; 83735; 85025; 93005; 93010; 94640; 96361; 96372; G0378; G0480; J1630; J1650; J2060; J3486; J7030

== ENCOUNTER 2019-08-17 19:51 | Emergency (ER) | payer MEDICARE ==
--- NOTE | 2019-08-17 20:22 | Emergency Department Report ---
Blank Doc - Documentation Documentation: 49 y/o female with lupus C/o of polyarthalgia , chest pain and stiffiness asso ciated with dizziness. No headache or sob. 1 week. This initial assessment/diagnostic orders/clinical plan/treatment(s) is/are subject to change based on patient's health status, clinical progression and re- assessment by fellow clinical providers in the ED. Further treatment and workup at subsequent clinical providers discretion. Patient/guardians urged not to elope from the ED as their condition may be serious if not clinically assessed and managed. Initial orders include: out or prednisone 1 week ago.
== END 2019-08-17 20:21 | disposition left against medical advice (07) ==
LOC: ED 19:51
DX: M19.90 Unspecified osteoarthritis, unspecified site (principal); Z53.21 Procedure and treatment not carried out due to patient leaving prior to being seen by health care provider